=== PATIENT | male | born 1990 | race Caucasian/White ===

== ENCOUNTER 2016-12-05 16:43 | Emergency (ER) | payer MEDICAID ==
[2016-12-05 18:20] VITALS: BP 122/60
--- NOTE | 2016-12-05 19:54 | EDM.PDOC ---
ED HPI Behavioral Health - General Chief Complaint: Behavioral/Psych Stated Complaint: PANIC ATTACK Time Seen by Provider: 12/05/16 18:27 Source: Reports: Patient, Old records, RN notes reviewed Exam Limitations: Reports: No limitations - History of Present Illness INITIAL COMMENTS - FREE TEXT/NARRATIVE: 26-year-old gentleman presents emergency department a complaint of anxiety and stress he is currently going through a difficult social situation he is on a variety of medications including Klonopin, Paxil, Seroquel and Suboxone. He is interested in trying Ativan - Related Data Allergies Allergy/AdvReac Type Severity Reaction Status Date / Time No Known Allergies Allergy Verified 12/05/16 18:14 Home Medications: Home Meds ClonazePAM [KlonoPIN] 0.5 mg PO TID PRN 12/05/16 [History] denies Pain Score (Numeric/FACES): 0 Past Medical History Musculoskeletal History: Reports: Other (see below) Other Musculoskeletal History: Dislocated l shoulderx3 Neurological History: Reports: Seizure, Other (see below) Other Neuro History: related to Ultram Psychiatric History: Reports: Addiction, Anxiety, Depression, Mood swings Other Psychiatric History: Patient unable to answer at this time. Other Dermatologic History: Patient unable to answer at this time. - Infectious Disease History Infectious Disease History: Reports: Chicken pox - Past Surgical History Musculoskeletal Surgical History: Reports: Shoulder surgery Social & Family History - Family History Family Medical History: Unobtainable - Tobacco Use Smoking Status *Q: Never Smoker Years of Tobacco use: 9 Packs/Tins Daily: 0.5 Used Tobacco, but Quit: No Second Hand Smoke Exposure: No - Alcohol Use Days Per Week of Alcohol Use: 0 - Recreational Drug Use Recreational Drug Use: No Drug Use in Last 12 Months: Yes Recreational Drug Type: Reports: Methamphetamine Recreational Drug Use Frequency: Not Used In Over 5 Months ED ROS GENERAL - Review of Systems Review Of Systems: See Below Constitutional: Reports: no symptoms Respiratory: Reports: No Symptoms Cardiovascular: Reports: No symptoms GI/Abdominal: Reports: No symptoms : Reports: no symptoms Psychiatric: Reports: Anxiety ED EXAM, BEHAVIORAL HEALTH - Physical Exam Exam: See Below Exam Limited By: No limitations General Appearance: alert, WD/WN, no apparent distress Respiratory/Chest: no respiratory distress Psychiatric: alert, oriented, restless, agitated, poor eye contact COURSE, BEHAVIORAL HEALTH COMP - Course Vital Signs: Last Vital Signs Temp 98.6 F 12/05/16 18:17 Pulse 120 H 12/05/16 18:17 Resp 16 12/05/16 18:17 BP 122/60 12/05/16 18:17 Pulse Ox 99 12/05/16 18:17 Orders, Labs, Meds: Laboratory Tests 12/05/16 12/05/16 Range/Units 19:06 19:06 Urine Color Yellow Urine Appearance Slightly cloudy Urine pH 5.0 (4.5-8.0) Ur Specific [place] 1.025 (1.008-1.030) Urine Protein 30 H (NEGATIVE) mg/dL Urine Glucose (UA) 250 H (NEGATIVE) mg/dL Urine Ketones 15 H (NEGATIVE) mg/dL Urine Occult Blood Moderate (NEGATIVE) Urine Nitrite Negative (NEGAITVE) Urine Bilirubin Negative (NEGATIVE) Urine Urobilinogen Normal (NORMAL) mg/dL Ur Leukocyte Esterase Negative (NEGATIVE) Urine RBC 0-5 (0-5) Urine WBC 0-5 (0-5) Ur Epithelial Cells Few Amorphous Sediment Few Urine Bacteria Few Urine Mucus Moderate Urine Other Urine Opiates Screen Negative (NEGATIVE) Ur Oxycodone Screen Positive H (NEGATIVE) Urine Methadone Screen Negative (NEGATIVE) Ur Propoxyphene Screen Negative (NEGATIVE) Ur Barbiturates Screen Negative (NEGATIVE) Ur Tricyclics Screen Positive H (NEGATIVE) Ur Phencyclidine Scrn Negative (NEGATIVE) Ur Amphetamine Screen Positive H (NEGATIVE) U Methamphetamines Scrn Positive H (NEGATIVE) Urine MDMA Screen Negative (NEGATIVE) U Benzodiazepines Scrn Positive H (NEGATIVE) U Cocaine Metab Screen Negative (NEGATIVE) U Marijuana (THC) Screen Positive H (NEGATIVE) Departure - Departure Time of Disposition: 19:53 Disposition: Home, Self-Care 01 Condition: fair Clinical Impression: Anxiety Forms: ED Department Discharge Additional Instructions: increase her Paxil from 20 mg a day to 30 mg a day please keep your followup appointment with mental health provider on the of this month - Assessment/Plan Plan: Assessment Acuity = acute on chronic Site and laterality = anxiety complicated with a long history of illegal drug use Etiology = generalized anxiety disorder Manifestations = none Location of injury = home Lab values = urinalysis drug screen positive for opiates, benzodiazepines, methamphetamine, cannabis Plan I did review with him medication options for his anxiety I felt that Ativan is not appropriate for him at this time given his use of Klonopin recommend increase Paxil from 20 mg to 30 mg he does have followup with mental health on the of this month Patient was in agreement with the plan all questions were answered, they were instructed to return to the emergency department or call for worsening symptoms. This note was dictated using [employer] voice recognition software please call with any questions.
== END 2016-12-05 19:58 | disposition home or self-care (01) ==
LOC: JP.ED 16:43
DX: F41.9 Anxiety disorder, unspecified (principal); F32.9 Major depressive disorder, single episode, unspecified
CPT/HCPCS: 80305; 81001; 99283; 99284

== ENCOUNTER 2017-03-26 20:36 | Emergency (ER) | payer MEDICAID ==
[2017-03-26 22:40] VITALS: BP 113/69
--- NOTE | 2017-03-26 23:24 | EDM.PDOC ---
ED HPI GENERAL MEDICAL PROBLEM - General Chief Complaint: Upper Extremity Injury/Pain Stated Complaint: ARM HURTS TOWARDS BACK Time Seen by Provider: 03/26/17 23:06 Source of Information: Reports: Patient, Old Records, RN Notes Reviewed History Limitations: Reports: No Limitations - History of Present Illness INITIAL COMMENTS - FREE TEXT/NARRATIVE: 26-year-old gentleman presents emergency department day complaint of pain control he does have a known history of chronic dislocation with his right shoulder, he has had 2 surgeries on the shoulder for the chronic dislocation usually takes Suboxone for pain control, Right Shoulder Pain Score (Numeric/FACES): 8 - Related Data Allergies Allergy/AdvReac Type Severity Reaction Status Date / Time No Known Allergies Allergy Verified 03/26/17 22:50 Home Meds: Home Meds ClonazePAM [KlonoPIN] 0.5 mg PO TID PRN 12/05/16 [History] Buprenorphine HCl/Naloxone HCl [Zubsolv 8.6-2.1 mg Tablet Sl] 1 tab SL TID PRN 03/26/17 [History] Ibuprofen 800 mg PO TID PRN 03/26/17 [History] QUEtiapine [SEROquel] 25 mg PO QID 03/26/17 [History] Past Medical History Musculoskeletal History: Reports: Other (See Below) Other Musculoskeletal History: bilateral shoulder dislocation Neurological History: Reports: Seizure Other Neuro History: related to Ultram Psychiatric History: Reports: Addiction, Anxiety, Depression, Mood Swings Other Psychiatric History: Patient unable to answer at this time. Other Dermatologic History: Patient unable to answer at this time. - Infectious Disease History Infectious Disease History: Reports: Chicken Pox - Past Surgical History Musculoskeletal Surgical History: Reports: Shoulder Surgery, Other (See Below) Other Musculoskeletal Surgeries/Procedures:: bilateral shoulder surgery Other Oncologic Surgeries/Procedures: Patient unable to answer at this time. Social & Family History - Family History Family Medical History: Unobtainable - Tobacco Use Smoking Status *Q: Current Every Day Smoker Years of Tobacco use: 6 Packs/Tins Daily: 0.7 Used Tobacco, but Quit: No Second Hand Smoke Exposure: No - Caffeine Use Caffeine Use: Reports: Tea - Alcohol Use Days Per Week of Alcohol Use: 0 - Recreational Drug Use Recreational Drug Use: Yes Drug Use in Last 12 Months: Yes Recreational Drug Type: Reports: Marijuana/Hashish Recreational Drug Use Frequency: Not Used In Over 5 Months Review of Systems - Review of Systems Review Of Systems: See Below Constitutional: Reports: No Symptoms Musculoskeletal: Reports: Shoulder Pain ED EXAM, GENERAL - Physical Exam Exam: See Below Free Text/Narrative:: Examination the right shoulder does have limited range however he does have about 250 of abduction full range of motion extension and flexion of the shoulder Exam Limited By: No Limitations General Appearance: Alert, WD/WN, No Apparent Distress Course - Vital Signs Last Recorded V/S: Last Vital Signs Temp 96.7 F 03/26/17 22:55 Pulse 90 03/26/17 22:55 Resp 15 03/26/17 22:55 BP 113/69 03/26/17 22:55 Pulse Ox 100 03/26/17 22:55 Departure - Departure Time of Disposition: 23:23 Disposition: Home, Self-Care 01 Condition: Fair Clinical Impression: Shoulder pain Qualifiers: Chronicity: chronic Laterality: right Qualified Code(s): M25.511 - Pain in right shoulder; G89.29 - Other chronic pain - Discharge Information Forms: ED Department Discharge Additional Instructions: Use Percocet as needed for pain control, please call your orthopedic surgeon in the morning for further evaluation - Assessment/Plan Plan: Assessment Acuity = chronic Site and laterality = left shoulder pain Etiology = secondary to multiple dislocations Manifestations = none Location of injury = Home Lab values = none Plan Prescription granted for 4 Percocet he is to follow-up with his clinic provider tomorrow Patient was in agreement with the plan all questions were answered, they were instructed to return to the emergency department or call for worsening symptoms. This note was dictated using [employer] voice recognition software please call with any questions.
== END 2017-03-26 23:39 | disposition home or self-care (01) ==
LOC: JP.ED 20:36
DX: M25.511 Pain in right shoulder (principal); F17.210 Nicotine dependence, cigarettes, uncomplicated; F41.9 Anxiety disorder, unspecified; F32.9 Major depressive disorder, single episode, unspecified; Z79.899 Other long term (current) drug therapy
CPT/HCPCS: 99283

== ENCOUNTER 2017-04-02 21:21 | Emergency (ER) | payer MEDICAID ==
[2017-04-02 23:33] VITALS: BP 118/76
--- NOTE | 2017-04-03 00:07 | EDM.PDOC ---
ED HPI GENERAL MEDICAL PROBLEM - General Chief Complaint: Upper Extremity Injury/Pain Stated Complaint: ISSUES W/RT SHOULDER Time Seen by Provider: 04/02/17 22:56 Source of Information: Reports: Patient History Limitations: Reports: No Limitations - History of Present Illness INITIAL COMMENTS - FREE TEXT/NARRATIVE: History of present illness: [26-year-old male who says he's having trouble with chronic dislocation of his right shoulder is seeking to have surgery for this. He has a doctor in [place] that he is trying to get in to to have this done. He states this did his left shoulder. He admits to having had trouble with heroin in the past and apparently has some solve that she will use at times for cravings for heroin but does not use it for pain. 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 The most recent incident of his shoulder going out and was when he was sleeping and he rolled over and he stated that his right shoulder popped out and then popped back in and he is presenting with severe pain as a result of this happening.] Review of systems: As per history of present illness and below otherwise all systems reviewed and negative. Past medical history: As per history of present illness and as reviewed below otherwise noncontributory. Surgical history: As per history of present illness and as reviewed below otherwise noncontributory. Family history: As per history of present illness and as reviewed below otherwise noncontributory. Physical exam: HEENT: Atraumatic, normocephalic, Lungs: Clear to auscultation, breath sounds equal bilaterally, chest nontender. Heart: S1S2, regular, negative for clicks, rubs, or JVD. Abdomen: Soft, nondistended, nontender. Negative for masses or hepatosplenomegaly. Negative for costovertebral tenderness. Extremities: Examination of his right shoulder does reveal diffuse tenderness to palpation throughout the shoulder he is very hesitant and reluctant to have me try to put it through any kind of range of motion fearing that it won't go out. Neuro: Awake, alert, oriented. Exam nonfocal. Diagnostics: [] Therapeutics: [] Impression: [Chronic right shoulder dislocations] Plan: [He's provided with 10 Percocet but have urged him to try to establish care with a primary care doctor in [facility]. If his story is true he should be following up with an orthopedic surgeon in [place] to have his right shoulder surgery done.] Definitive disposition and diagnosis as appropriate pending reevaluation and review of above. Right Shoulder Pain Score (Numeric/FACES): 8 - Related Data Allergies Allergy/AdvReac Type Severity Reaction Status Date / Time No Known Allergies Allergy Verified 03/26/17 22:50 Home Meds: Home Meds ClonazePAM [KlonoPIN] 0.5 mg PO TID PRN 12/05/16 [History] Buprenorphine HCl/Naloxone HCl [Zubsolv 8.6-2.1 mg Tablet Sl] 1 tab SL TID PRN 03/26/17 [History] Ibuprofen 800 mg PO TID PRN 03/26/17 [History] QUEtiapine [SEROquel] 25 mg PO QID 03/26/17 [History] Past Medical History Musculoskeletal History: Reports: Other (See Below) Other Musculoskeletal History: bilateral shoulder dislocation Neurological History: Reports: Seizure Other Neuro History: related to Ultr[employer] Psychiatric History: Reports: Addiction, Anxiety, Depression, Mood Swings Other Psychiatric History: Patient unable to answer at this time. Other Dermatologic History: Patient unable to answer at this time. - Infectious Disease History Infectious Disease History: Reports: Chicken Pox - Past Surgical History Other HEENT Surgeries/Procedures: Patient unable to answer at this time. Musculoskeletal Surgical History: Reports: Shoulder Surgery, Other (See Below) Other Musculoskeletal Surgeries/Procedures:: bilateral shoulder surgery Other Oncologic Surgeries/Procedures: Patient unable to answer at this time. Social & Family History - Family History Family Medical History: Unobtainable - Tobacco Use Smoking Status *Q: Current Status Unknown Years of Tobacco use: 6 Packs/Tins Daily: 0.7 Used Tobacco, but Quit: No Second Hand Smoke Exposure: No - Caffeine Use Caffeine Use: Reports: Coffee - Alcohol Use Days Per Week of Alcohol Use: 0 - Recreational Drug Use Recreational Drug Use: No Drug Use in Last 12 Months: Yes Recreational Drug Type: Reports: Marijuana/Hashish Recreational Drug Use Frequency: Not Used In Over 5 Months Review of Systems - Review of Systems Review Of Systems: ROS reveals no pertinent complaints other than HPI. ED EXAM, GENERAL - Physical Exam Exam: See Below Course - Vital Signs Last Recorded V/S: Last Vital Signs Temp 35.9 C 04/02/17 23:41 Pulse 94 04/02/17 23:41 Resp 18 04/02/17 23:41 BP 118/76 04/02/17 23:41 Pulse Ox 100 04/02/17 23:41 Departure - Departure Time of Disposition: 00:06 Disposition: Home, Self-Care 01 Condition: Fair Clinical Impression: Chronic dislocation of right shoulder - Discharge Information Forms: ED Department Discharge Additional Instructions: Please continue to try to get in to see Dr. Anthony Carlisle who will do surgery on her shoulder to take care of this problem. Also I would recommend that you establish care in town with a primary care doctor who can care for your and provide you with medications as needed.
== END 2017-04-03 00:26 | disposition home or self-care (01) ==
LOC: JP.ED 21:21
DX: M24.411 Recurrent dislocation, right shoulder (principal); F41.9 Anxiety disorder, unspecified; F32.9 Major depressive disorder, single episode, unspecified; Z98.890 Other specified postprocedural states; F17.210 Nicotine dependence, cigarettes, uncomplicated
CPT/HCPCS: 99283

== ENCOUNTER 2017-04-14 13:27 | Emergency (ER) | payer MEDICAID ==
[2017-04-14 13:47] VITALS: BP 139/91
[2017-04-14] MEDS ORDERED: Ketorolac 60 MG/2 ML SDV IM ONE (14:58)
--- NOTE | 2017-04-14 15:00 | EDM.PDOC ---
ED HPI GENERAL MEDICAL PROBLEM - General Chief Complaint: Upper Extremity Injury/Pain Stated Complaint: LEFT SHOULDER CHRONIC DISLOCATION Time Seen by Provider: 04/14/17 15:00 Source of Information: Reports: Patient History Limitations: Reports: No Limitations - History of Present Illness INITIAL COMMENTS - FREE TEXT/NARRATIVE: pt arrived with pain in the left shoulder which he feels is recurrently dislocating. He is trying to work at [employer] and has a 2 nd 5 year old child. Onset: Gradual Duration: Week(s): Location: Reports: Upper Extremity, Left Associated Symptoms: Reports: Other ( Pain in the left shoulder. He had surgery in [place] bout 3-4 years . He states about 1 year ago he began to have problems with chronic dislocation. He had surgery on the rt shoulder by Dr Austin and that shoulder id doing well. ) Left Shoulder Pain Score (Numeric/FACES): 8 - Related Data Allergies Allergy/AdvReac Type Severity Reaction Status Date / Time No Known Allergies Allergy Verified 04/14/17 13:50 Home Meds: Home Meds ClonazePAM [KlonoPIN] 0.5 mg PO TID PRN 12/05/16 [History] Buprenorphine HCl/Naloxone HCl [Zubsolv 8.6-2.1 mg Tablet Sl] 1 tab SL TID PRN 03/26/17 [History] Ibuprofen 800 mg PO TID PRN 03/26/17 [History] QUEtiapine [SEROquel] 25 mg PO QID 03/26/17 [History] Past Medical History Musculoskeletal History: Reports: Other (See Below) Other Musculoskeletal History: bilateral shoulder dislocation Neurological History: Reports: Seizure Other Neuro History: related to [employer] Psychiatric History: Reports: Addiction, Anxiety, Depression, Mood Swings Other Psychiatric History: Patient unable to answer at this time. Other Dermatologic History: Patient unable to answer at this time. - Infectious Disease History Infectious Disease History: Reports: Chicken Pox - Past Surgical History Musculoskeletal Surgical History: Reports: Shoulder Surgery, Other (See Below) Other Musculoskeletal Surgeries/Procedures:: bilateral shoulder surgery Social & Family History - Family History Family Medical History: Unobtainable - Tobacco Use Smoking Status *Q: Current Every Day Smoker Years of Tobacco use: 6 Packs/Tins Daily: 0.5 Used Tobacco, but Quit: No Second Hand Smoke Exposure: Yes - Caffeine Use Caffeine Use: Reports: Coffee, Soda, Tea - Alcohol Use Days Per Week of Alcohol Use: 0 - Recreational Drug Use Recreational Drug Use: Yes Drug Use in Last 12 Months: No Recreational Drug Type: Reports: Marijuana/Hashish Recreational Drug Use Frequency: Not Used In Over 5 Months Review of Systems - Review of Systems Review Of Systems: See Below Constitutional: Reports: No Symptoms Eyes: Reports: No Symptoms Ears: Reports: No Symptoms Nose: Reports: No Symptoms Mouth/Throat: Reports: No Symptoms Respiratory: Reports: No Symptoms Cardiovascular: Reports: No Symptoms GI/Abdominal: Reports: No Symptoms Genitourinary: Reports: No Symptoms Musculoskeletal: Reports: Other (pain in the left shoulder. ) ED EXAM, GENERAL - Physical Exam Exam: See Below Free Text/Narrative:: pt has an up coming appt with Dr Austin on the . He has a recurrent dislocation of his left shoulder. Exam Limited By: No Limitations General Appearance: Alert Extremities: Other ( left shoulder is tender, no swelling. He has had previos surgery on the [facility]. ) Course - Vital Signs Last Recorded V/S: Last Vital Signs Temp 36.3 C 04/14/17 14:05 Pulse 99 04/14/17 14:05 Resp 16 04/14/17 14:05 BP 139/91 H 04/14/17 14:05 Pulse Ox 95 04/14/17 14:05 - Orders/Labs/Meds Meds: Medications Discontinued Medications Generic Name Dose Route Start Last Admin Trade Name Freq PRN Reason Stop Dose Admin Ketorolac Tromethamine 60 mg 04/14/17 14:58 Toradol IM 04/14/17 14:59 ONETIME ONE Departure - Departure Time of Disposition: 14:58 Disposition: Home, Self-Care 01 Condition: Fair Clinical Impression: Chronic dislocation of left shoulder - Discharge Information Instructions: Shoulder Dislocation, [id number] Referrals: PCP,None [Primary Care Provider] - Forms: ED Department Discharge Care Plan Goals: rtc for a MRI, stop motrin torodol 10mg q6h for the next 5 days, keep appt with DR phillips.
== END 2017-04-14 15:15 | disposition home or self-care (01) ==
LOC: JP.ED 13:27
DX: M24.412 Recurrent dislocation, left shoulder (principal); F17.210 Nicotine dependence, cigarettes, uncomplicated; F41.9 Anxiety disorder, unspecified; F32.9 Major depressive disorder, single episode, unspecified; Z98.890 Other specified postprocedural states; Z79.899 Other long term (current) drug therapy
CPT/HCPCS: 96372; 99283; J1885

== ENCOUNTER 2017-06-28 18:07 | Emergency (ER) | payer MEDICAID ==
[2017-06-28 18:33] VITALS: BP 116/76
--- NOTE | 2017-06-28 19:32 | EDM.PDOC ---
ED HPI GENERAL MEDICAL PROBLEM - General Chief Complaint: Behavioral/Psych Stated Complaint: SEIZURES; ANXIETY Time Seen by Provider: 06/28/17 18:50 Source of Information: Reports: Patient History Limitations: Reports: Altered Mental Status, Other (Patient falling asleep while speaking to him. ) - History of Present Illness INITIAL COMMENTS - FREE TEXT/NARRATIVE: Antoni presents to the emergency room tonight for complaints of anxiety and depression, he states he cannot live with the anxiety any more. He reports his mental health provider stopped giving him his xanax. He reports he just got custody of his two little girls and has had 10 clean UDS. He denies fever, chills, nausea, vomiting or other complaints. - Related Data Allergies Allergy/AdvReac Type Severity Reaction Status Date / Time No Known Allergies Allergy Verified 04/14/17 13:50 Home Meds: Home Meds ClonazePAM [KlonoPIN] 0.5 mg PO TID PRN 12/05/16 [History] Buprenorphine HCl/Naloxone HCl [Zubsolv 8.6-2.1 mg Tablet Sl] 1 tab SL TID PRN 03/26/17 [History] Ibuprofen 800 mg PO TID PRN 03/26/17 [History] QUEtiapine [SEROquel] 25 mg PO QID 03/26/17 [History] Past Medical History Musculoskeletal History: Reports: Other (See Below) Other Musculoskeletal History: bilateral shoulder dislocation Neurological History: Reports: Seizure 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 Other Dermatologic History: Patient unable to answer at this time. - Infectious Disease History Infectious Disease History: Reports: Chicken Pox - Past Surgical History Musculoskeletal Surgical History: Reports: Shoulder Surgery, Other (See Below) Other Musculoskeletal Surgeries/Procedures:: bilateral shoulder surgery Social & Family History - Family History Family Medical History: Unobtainable - Tobacco Use Smoking Status *Q: Current Every Day Smoker Years of Tobacco use: 6 Packs/Tins Daily: 0.5 Used Tobacco, but Quit: No Second Hand Smoke Exposure: Yes - Caffeine Use Caffeine Use: Reports: Coffee, Soda, Tea - Alcohol Use Days Per Week of Alcohol Use: 0 - Recreational Drug Use Recreational Drug Use: Yes Drug Use in Last 12 Months: No Recreational Drug Type: Reports: Marijuana/Hashish, Methamphetamine Recreational Drug Use Frequency: Not Used In Over 5 Months ED ROS GENERAL - Review of Systems Review Of Systems: See Below Constitutional: Reports: Other (Patient reports having seizures on a daily basis , using suboxone 8 mg as needed. He denies other illicit or mis-use of drugs. ) . Denies: Fever, Chills, Malaise, Weakness HEENT: Reports: No Symptoms Respiratory: Denies: Shortness of Breath, Wheezing, Cough, Sputum Cardiovascular: Denies: Chest Pain, Dyspnea on Exertion, Palpitations, PND, Syncope Endocrine: Reports: No Symptoms GI/Abdominal: Reports: No Symptoms : Reports: No Symptoms Musculoskeletal: Reports: No Symptoms Skin: Reports: No Symptoms Neurological: Reports: No Symptoms Psychiatric: Reports: Anxiety, Depression, Other (He reports he take lamictal. ) . Denies: Hallucinations, Homicidal Ideation, Mood Lability, Suicidal Ideation Hematologic/Lymphatic: Reports: No Symptoms Immunologic: Reports: No Symptoms ED EXAM, GENERAL - Physical Exam Exam: See Below Exam Limited By: Other (Patient falls asleep while speaking with this provider, clothing dirty.) General Appearance: Lethargic Eye Exam: Bilateral Eye: Other (Bilateral pupils 2mm, equal, sluggish) Ears: Normal External Exam, Normal Canal, Hearing Grossly Normal, Normal TMs Ear Exam: Bilateral Ear: Auricle Normal, Canal Normal, TM normal Nose: Normal Inspection, Normal Mucosa, No Blood Throat/Mouth: Normal Inspection, Normal Lips, Normal Voice, No Airway Compromise , Other (Dry mucus membranes) Head: Atraumatic, Normocephalic Neck: Normal Inspection, Supple, Non-Tender, Full Range of Motion. No: Lymphadenopathy (R), Lymphadenopathy (L) Respiratory/Chest: No Respiratory Distress, Lungs Clear, Normal Breath Sounds, No Accessory Muscle Use, Chest Non-Tender Cardiovascular: Normal Peripheral Pulses, Regular Rate, Rhythm, No Edema, No Murmur Peripheral Pulses: 2+: Radial (L), Radial (R) Back Exam: Normal Inspection, Full Range of Motion. No: CVA Tenderness (R), CVA Tenderness (L) Extremities: Normal Range of Motion, Non-Tender, Normal Capillary Refill, Other (Patient refused to take jacket off to examine arms. ) Neurological: Normal Gait, Slow to Respond, Other (Patient refused further assessment. ) Psychiatric: Flat Affect Skin Exam: Warm, Dry, Normal Color Lymphatic: No Adenopathy Course - Vital Signs Last Recorded V/S: Last Vital Signs Temp 36.6 C 06/28/17 18:32 Pulse 124 H 06/28/17 18:32 Resp 18 06/28/17 18:32 BP 116/76 06/28/17 18:32 Pulse Ox 99 06/28/17 18:32 - Re-Assessments/Exams Free Text/Narrative Re-Assessment/Exam: 06/28/17 19:00 Patient informed that a UDS would be ordered, he states he just urinated and will not do one. He was informed that he would not be prescribed a benzodiazepine or other controlled substance. He stated to not do anything for him, just take care of his girls (Nuria Morales, Susan Morales). He reports the mother of the girls has been gone for 2 years. [place] police notified of concerns of his ability to care for his children. 06/28/17 19:25 Patient daughters requested to use toilet, daughters to bathroom with Natalya Price RN. Patient informed of this care-givers concern of his ability to care for his two daughters. Patient walked out of room stating he had custody, visualized present police officers and asked for the way out of the emergency room. He stated "I just want to leave". Patient exited hospital without discharge instructions or further medical care. Police present, observed patient leaving his two daughters in the emergency room. Departure - Departure Time of Disposition: 19:25 Disposition: Eloped 07 Condition: Undetermined Clinical Impression: Altered mental status, unspecified - Discharge Information Referrals: PCP,None [Primary Care Provider] - Forms: ED Department Discharge Additional Instructions: Patient left without children and further medical care or discharge instructions. - Assessment/Plan Assessment:: Undetermined Left without further medical care or discharge instructions. Plan: Police notified.
== END 2017-06-28 19:25 | disposition left against medical advice (07) ==
LOC: JP.ED 18:07
DX: R41.82 Altered mental status, unspecified (principal); F31.9 Bipolar disorder, unspecified; F17.210 Nicotine dependence, cigarettes, uncomplicated; Z98.890 Other specified postprocedural states
CPT/HCPCS: 99284

== ENCOUNTER 2017-11-16 11:48 | Emergency (ER) | payer MEDICAID ==
[2017-11-16] MEDS ORDERED: HYDROmorphone 1 MG/ML Syringe IVPUSH ONE (12:25)
--- NOTE | 2017-11-16 12:26 | EDM.PDOC ---
ED HPI GENERAL MEDICAL PROBLEM - General Chief Complaint: Abdominal Pain Stated Complaint: LT SIDE ABDOMINAL PAIN Time Seen by Provider: 11/16/17 12:23 Source of Information: Reports: Patient History Limitations: Reports: No Limitations - History of Present Illness INITIAL COMMENTS - FREE TEXT/NARRATIVE: pt developed acute pain in the left lower abdoman. He has no burning with urination. He did feel the pain may have started in the left flank. He has not vomited. He did have a normal bm this am. Onset: Other ( started last nite. ) Duration: Hour(s):, Getting Worse Location: Reports: Abdomen Associated Symptoms: Reports: No Other Symptoms Abdomen Pain Score (Numeric/FACES): 9 - Related Data Allergies Allergy/AdvReac Type Severity Reaction Status Date / Time No Known Allergies Allergy Verified 11/16/17 11:56 Home Meds: Home Meds Buprenorphine HCl/Naloxone HCl [Zubsolv 8.6-2.1 mg Tablet Sl] 1 tab SL TID PRN 03/26/17 [History] QUEtiapine [SEROquel] 25 mg PO QID 03/26/17 [History] Past Medical History Musculoskeletal History: Reports: Other (See Below) Other Musculoskeletal History: bilateral shoulder dislocation Neurological History: Reports: Seizure 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 Other Dermatologic History: Patient unable to answer at this time. - Infectious Disease History Infectious Disease History: Reports: Chicken Pox - Past Surgical History Musculoskeletal Surgical History: Reports: Shoulder Surgery, Other (See Below) Other Musculoskeletal Surgeries/Procedures:: bilateral shoulder surgery Other Oncologic Surgeries/Procedures: Patient unable to answer at this time. Social & Family History - Family History Family Medical History: Unobtainable - Tobacco Use Smoking Status *Q: Light Tobacco Smoker Years of Tobacco use: 9 Packs/Tins Daily: 0.5 Used Tobacco, but Quit: No Second Hand Smoke Exposure: Yes - Caffeine Use Caffeine Use: Reports: Coffee, Soda, Tea - Alcohol Use Days Per Week of Alcohol Use: 0 - Recreational Drug Use Recreational Drug Use: Yes Drug Use in Last 12 Months: No Recreational Drug Type: Reports: Heroin, Marijuana/Hashish Recreational Drug Use Frequency: Not Used In Over 5 Months ED ROS GENERAL - Review of Systems Review Of Systems: See Below Constitutional: Reports: No Symptoms HEENT: Reports: No Symptoms Respiratory: Reports: No Symptoms Cardiovascular: Reports: No Symptoms Endocrine: Reports: No Symptoms GI/Abdominal: Reports: Abdominal Pain, Other (pt has pain in the left flank are now in the left lower abdoman. a and it is ) : Reports: Flank Pain Musculoskeletal: Reports: No Symptoms ED EXAM, GI/ABD - Physical Exam Exam: See Below Text/Narrative:: pt arrived with pain in left lower abdoman. He states that the pain started in the left flank area. Exam Limited By: No Limitations General Appearance: Alert, Anxious, Severe Distress Eyes: Bilateral: Normal Appearance, EOMI Ears: Normal TMs Nose: Normal Inspection Throat/Mouth: Normal Inspection Head: Atraumatic Neck: Normal Inspection Respiratory/Chest: No Respiratory Distress Cardiovascular: Regular Rate, Rhythm GI/Abdominal Exam: Soft, Tender, Other (pt has left lower abdomanl tenderness without guarding. ) (Male) Exam: Deferred Rectal (Males) Exam: Deferred Back Exam: Normal Inspection Extremities: Normal Inspection Neurological: Alert, Oriented, Normal Cognition Psychiatric: Anxious Course - Vital Signs Last Recorded V/S: Last Vital Signs Temp 35.6 C 11/16/17 11:55 Pulse 68 11/16/17 13:30 Resp 16 11/16/17 13:30 BP 129/95 H 11/16/17 13:30 Pulse Ox 99 11/16/17 13:30 - Orders/Labs/Meds Orders: Active Orders 24 hr Category Date Time Status Sodium Chloride 0.9% [Normal Saline] 1,000 ml Med 11/16/17 12:30 Active IV ASDIRECTED Sodium Chloride 0.9% [Normal Saline] 1,000 ml Med 11/16/17 13:45 Active IV ASDIRECTED Tamsulosin [Flomax] Med 11/17/17 09:00 Active 0.4 mg PO PCBREAKFAST Medication Orders Sodium Chloride (Normal Saline) 1,000 mls @ 999 mls/hr IV ASDIRECTED SIDDHARTH Last Admin: 11/16/17 12:44 Dose: 999 mls/hr Sodium Chloride (Normal Saline) 1,000 mls @ 999 mls/hr IV ASDIRECTED SIDDHARTH Last Admin: 11/16/17 13:44 Dose: 999 mls/hr Tamsulosin HCl (Flomax) 0.4 mg PO PCBREAKFAST [facility] Last Admin: 11/16/17 14:01 Dose: 0.4 mg Labs: Laboratory Tests 11/16/17 11/16/17 11/16/17 Range/Units 12:15 12:15 12:15 WBC 12.4 H (4.5-11.0) K/uL RBC 4.66 (4.30-5.90) M/uL Hgb 13.4 (12.0-15.0) g/dL Hct 40.6 (40.0-54.0) % MCV 87 (80-98) fL MCH 29 (27-31) pg MCHC 33 (32-36) % Plt Count 369 (150-400) K/uL Neut % (Auto) 80 H (36-66) % Lymph % (Auto) 15 L (24-44) % [place] % (Auto) 5 (2-6) % Eos % (Auto) 0 L (2-4) % Baso % (Auto) 0 (0-1) % Sodium 138 L (140-148) mmol/L Potassium 3.7 (3.6-5.2) mmol/L Chloride 102 (100-108) mmol/L Carbon Dioxide 30 (21-32) mmol/L Anion Gap 9.7 (5.0-14.0) mmol/L BUN 12 (7-18) mg/dL Creatinine 1.0 (0.8-1.3) mg/dL Est Cr Clr Drug Dosing 130.94 mL/min Estimated GFR (MDRD) > 60 (>60) Glucose 106 (74-106) mg/dL Calcium 8.9 (8.5-10.1) mg/dL Total Bilirubin 0.2 (0.2-1.0) mg/dL AST 21 (15-37) U/L ALT 20 (12-78) U/L Alkaline Phosphatase 107 (46-116) U/L C-Reactive Protein 0.08 (0.0-0.3) mg/dL Total Protein 7.5 (6.4-8.2) g/dL Albumin 3.9 (3.4-5.0) g/dL Globulin 3.6 H (2.3-3.5) g/dL Albumin/Globulin Ratio 1.1 L (1.2-2.2) Urine Color Urine Appearance Urine pH (4.5-8.0) Ur Specific [place] (1.008-1.030) Urine Protein (NEGATIVE) mg/dL Urine Glucose (UA) (NEGATIVE) mg/dL Urine Ketones (NEGATIVE) mg/dL Urine Occult Blood (NEGATIVE) Urine Nitrite (NEGAITVE) Urine Bilirubin (NEGATIVE) Urine Urobilinogen (NORMAL) mg/dL Ur Leukocyte Esterase (NEGATIVE) Urine RBC (0-5) Urine WBC (0-5) Ur Epithelial Cells Amorphous Sediment Urine Bacteria Urine Mucus Urine Other Urine Opiates Screen (NEGATIVE) Ur Oxycodone Screen (NEGATIVE) Urine Methadone Screen (NEGATIVE) Ur Propoxyphene Screen (NEGATIVE) Ur Barbiturates Screen (NEGATIVE) Ur Tricyclics Screen (NEGATIVE) Ur Phencyclidine Scrn (NEGATIVE) Ur Amphetamine Screen (NEGATIVE) U Methamphetamines Scrn (NEGATIVE) Urine MDMA Screen (NEGATIVE) U Benzodiazepines Scrn (NEGATIVE) U Cocaine Metab Screen (NEGATIVE) U Marijuana (THC) Screen (NEGATIVE) 11/16/17 11/16/17 Range/Units 13:02 13:02 WBC (4.5-11.0) K/uL RBC (4.30-5.90) M/uL Hgb (12.0-15.0) g/dL Hct (40.0-54.0) % MCV (80-98) fL MCH (27-31) pg MCHC (32-36) % Plt Count (150-400) K/uL Neut % (Auto) (36-66) % Lymph % (Auto) (24-44) % [place] % (Auto) (2-6) % Eos % (Auto) (2-4) % Baso % (Auto) (0-1) % Sodium (140-148) mmol/L Potassium (3.6-5.2) mmol/L Chloride (100-108) mmol/L Carbon Dioxide (21-32) mmol/L Anion Gap (5.0-14.0) mmol/L BUN (7-18) mg/dL Creatinine (0.8-1.3) mg/dL Est Cr Clr Drug Dosing mL/min Estimated GFR (MDRD) (>60) Glucose (74-106) mg/dL Calcium (8.5-10.1) mg/dL Total Bilirubin (0.2-1.0) mg/dL AST (15-37) U/L ALT (12-78) U/L Alkaline Phosphatase (46-116) U/L C-Reactive Protein (0.0-0.3) mg/dL Total Protein (6.4-8.2) g/dL Albumin (3.4-5.0) g/dL Globulin (2.3-3.5) g/dL Albumin/Globulin Ratio (1.2-2.2) Urine Color Yellow Urine Appearance Cloudy Urine pH 7.0 (4.5-8.0) Ur Specific [place] 1.015 (1.008-1.030) Urine Protein Negative (NEGATIVE) mg/dL Urine Glucose (UA) Normal (NEGATIVE) mg/dL Urine Ketones Negative (NEGATIVE) mg/dL Urine Occult Blood Large (NEGATIVE) Urine Nitrite Negative (NEGAITVE) Urine Bilirubin Negative (NEGATIVE) Urine Urobilinogen Normal (NORMAL) mg/dL Ur Leukocyte Esterase Negative (NEGATIVE) Urine RBC 20-30 H (0-5) Urine WBC 0-5 (0-5) Ur Epithelial Cells Rare Amorphous Sediment Many Urine Bacteria Rare Urine Mucus Not seen Urine Other Urine Opiates Screen Positive H (NEGATIVE) Ur Oxycodone Screen Negative (NEGATIVE) Urine Methadone Screen Negative (NEGATIVE) Ur Propoxyphene Screen Negative (NEGATIVE) Ur Barbiturates Screen Negative (NEGATIVE) Ur Tricyclics Screen Negative (NEGATIVE) Ur Phencyclidine Scrn Negative (NEGATIVE) Ur Amphetamine Screen Positive H (NEGATIVE) U Methamphetamines Scrn Positive H (NEGATIVE) Urine MDMA Screen Positive H (NEGATIVE) U Benzodiazepines Scrn Negative (NEGATIVE) U Cocaine Metab Screen Negative (NEGATIVE) U Marijuana (THC) Screen Positive H (NEGATIVE) Meds: Medications Generic Name Dose Route Start Last Admin Trade Name Freq PRN Reason Stop Dose Admin Sodium Chloride 1,000 mls @ 999 mls/hr 11/16/17 12:30 11/16/17 12:44 Normal Saline IV 999 mls/hr ASDIRECTED SIDDHARTH Administration Sodium Chloride 1,000 mls @ 999 mls/hr 11/16/17 13:45 11/16/17 13:44 Normal Saline IV 999 mls/hr ASDIRECTED SIDDHARTH Administration Tamsulosin HCl 0.4 mg 11/17/17 09:00 11/16/17 14:01 Flomax PO 0.4 mg PCBREAKFAST SIDDHARTH Administration Discontinued Medications Generic Name Dose Route Start Last Admin Trade Name Luisito PRN Reason Stop Dose Admin Hydromorphone HCl 1 mg 11/16/17 12:25 11/16/17 12:43 Dilaudid IVPUSH 11/16/17 12:26 1 mg ONETIME ONE Administration Ketorolac Tromethamine 30 mg 11/16/17 13:46 11/16/17 14:02 Toradol IVPUSH 11/16/17 13:47 30 mg ONETIME ONE Administration Tamsulosin HCl Confirm 11/16/17 14:00 11/16/17 14:03 Flomax Administered 11/16/17 14:01 Not Given Dose 0.4 mg [address]TE [facility] ONE - Re-Assessments/Exams Free Text/Narrative Re-Assessment/Exam: 11/16/17 14:20 pt has a 3 mm stone just outside the bladder on the left. He was given torodol and flomax. Departure - Departure Time of Disposition: 15:01 Disposition: Home, Self-Care 01 Condition: Fair Clinical Impression: Left ureteral stone, Drug abuse - Discharge Information Referrals: PCP,None [Primary Care Provider] - Forms: ED Department Discharge Care Plan Goals: push fluids, flomax .4 po daily, strain all urine, torodol 10mg q6h prn for pain , - My Orders Last 24 Hours: My Active Orders 11/16/17 12:30 Sodium Chloride 0.9% [Normal Saline] 1,000 ml IV ASDIRECTED 11/17/17 09:00 Tamsulosin [Flomax] 0.4 mg PO PCBREAKFAST - Assessment/Plan Last 24 Hours: My Active Orders 11/16/17 12:30 Sodium Chloride 0.9% [Normal Saline] 1,000 ml IV ASDIRECTED 11/17/17 09:00 Tamsulosin [Flomax] 0.4 mg PO PCBREAKFAST
[2017-11-16] MEDS ORDERED: Sodium Chloride 0.9% 1,000 ML IV SCH ×2 (12:30→13:45)
[2017-11-16 13:43] VITALS: BP 129/95
[2017-11-16] MEDS ORDERED: Ketorolac 30 MG/ML SDV IVPUSH ONE (13:46)
[2017-11-16] MEDS ORDERED: Tamsulosin 0.4 MG Cap.ER ONE (14:00)
--- NOTE | 2017-11-16 14:04 | CT ---
Abdomen Pelvis wo Cont INDICATION: left lower abdominal pain TECHNIQUE: CT images of the abdomen and pelvis obtained without oral or IV contrast. DLP: 806 mGycm COMPARISON: None. FINDINGS: Study is Limited without oral or IV contrast. 4 mm Stone at the left UVJ causing moderate left hydronephrosis and hydroureter. No intrarenal calcu li. No hydronephrosis on the right. Right ureters clear. Diffuse bladder wall thickening. Remainder o f the study unremarkable. Normal appendix. No ascites or inflammatory change. IMPRESSION:4 mm stone left UVJ causing moderate left hydronephrosis and hydroureter.
[2017-11-17] MEDS ORDERED: Tamsulosin 0.4 MG Cap.ER PO SCH (09:00)
== END 2017-11-16 15:45 | disposition home or self-care (01) ==
LOC: JP.ED 11:48
DX: N13.2 Hydronephrosis with renal and ureteral calculous obstruction (principal); F19.10 Other psychoactive substance abuse, uncomplicated; F31.9 Bipolar disorder, unspecified; Z79.899 Other long term (current) drug therapy; Z72.0 Tobacco use
CPT/HCPCS: 36415; 51798; 74176; 80053; 80305; 81001; 85025; 86140; 96361; 96374; 96375; 99284; A9270; J1170; J1885; J7040

== ENCOUNTER 2017-12-09 18:03 | Emergency (ER) | payer MEDICAID ==
[2017-12-09] MEDS ORDERED: LORazepam 1 MG Tab PO ONE (18:31)
[2017-12-09 18:48] VITALS: BP 134/79
--- NOTE | 2017-12-09 18:53 | EDM.PDOC ---
ED HPI GENERAL MEDICAL PROBLEM - General Chief Complaint: Upper Extremity Injury/Pain Stated Complaint: L SHOULDER DISLOCATION Time Seen by Provider: 12/09/17 18:15 Source of Information: Reports: Patient History Limitations: Reports: No Limitations - History of Present Illness INITIAL COMMENTS - FREE TEXT/NARRATIVE: 27-year-old male with chronic left shoulder dislocations, seizure disorder since age 8, and chronic drug abuse presents with a left-sided shoulder dislocation for the past hour. He was "messing with his hair" when the shoulder popped out. He was in significant discomfort. No other complaints initially. Onset: Sudden Duration: Hour(s): (Within the last hour) Location: Reports: Upper Extremity, Left Severity: Moderate Improves with: Reports: None Worsens with: Reports: Movement Left Shoulder Pain Score (Numeric/FACES): 10 - Related Data Allergies Allergy/AdvReac Type Severity Reaction Status Date / Time No Known Allergies Allergy Verified 12/09/17 18:23 Home Meds: Home Meds clonazePAM [Klonopin] 1 mg PO BID 12/09/17 [History] Past Medical History Musculoskeletal History: Reports: Other (See Below) Other Musculoskeletal History: bilateral shoulder dislocation Neurological History: Reports: Seizure 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 Other Dermatologic History: Patient unable to answer at this time. - Infectious Disease History Infectious Disease History: Reports: Chicken Pox - Past Surgical History Musculoskeletal Surgical History: Reports: Shoulder Surgery, Other (See Below) Other Musculoskeletal Surgeries/Procedures:: bilateral shoulder surgery Social & Family History - Family History Family Medical History: Unobtainable - Tobacco Use Smoking Status *Q: Unknown Ever Smoked Years of Tobacco use: 9 Packs/Tins Daily: 0.5 Used Tobacco, but Quit: No Second Hand Smoke Exposure: Yes - Caffeine Use Caffeine Use: Reports: Coffee, Soda, Tea - Alcohol Use Days Per Week of Alcohol Use: 0 - Recreational Drug Use Recreational Drug Use: Yes Drug Use in Last 12 Months: No Recreational Drug Type: Reports: Heroin, Marijuana/Hashish Recreational Drug Use Frequency: Not Used In Over 5 Months Review of Systems - Review of Systems Review Of Systems: See Below Respiratory: Denies: Shortness of Breath Cardiovascular: Denies: Chest Pain GI/Abdominal: Denies: Abdominal Pain Skin: Reports: No Symptoms ED EXAM, GENERAL - Physical Exam Exam: See Below Exam Limited By: No Limitations General Appearance: Alert, Moderate Distress Head: Atraumatic Respiratory/Chest: No Respiratory Distress Cardiovascular: Tachycardia Extremities: Other (Obvious subclavicular defect from an anterior dislocation on the left side) Course - Vital Signs Last Recorded V/S: Last Vital Signs Temp 99.1 F 12/09/17 18:14 Pulse 138 H 12/09/17 18:48 Resp 15 12/09/17 18:48 BP 134/79 12/09/17 18:48 Pulse Ox 99 12/09/17 18:48 - Orders/Labs/Meds Orders: Active Orders 24 hr Category Date Time Status Shoulder 1V Lt [CR] Stat Exams 12/09/17 18:12 Taken Labs: Laboratory Tests 12/09/17 12/09/17 Range/Units 18:12 18:12 WBC 13.3 H (4.5-11.0) K/uL RBC 4.99 (4.30-5.90) M/uL Hgb 14.6 (12.0-15.0) g/dL Hct 42.4 (40.0-54.0) % MCV 85 (80-98) fL MCH 29 (27-31) pg MCHC 34 (32-36) % Plt Count 405 H (150-400) K/uL Neut % (Auto) 68 H (36-66) % Lymph % (Auto) 25 (24-44) % [place] % (Auto) 7 H (2-6) % Eos % (Auto) 1 L (2-4) % Baso % (Auto) 0 (0-1) % Sodium 140 (140-148) mmol/L Potassium 4.1 (3.6-5.2) mmol/L Chloride 100 (100-108) mmol/L Carbon Dioxide 21 (21-32) mmol/L Anion Gap 19.5 H (5.0-14.0) mmol/L BUN 24 H D (7-18) mg/dL Creatinine 1.3 (0.8-1.3) mg/dL Est Cr Clr Drug Dosing 96.68 mL/min Estimated GFR (MDRD) > 60 (>60) Glucose 119 H (74-106) mg/dL Calcium 9.5 (8.5-10.1) mg/dL Total Bilirubin 0.3 (0.2-1.0) mg/dL AST 23 (15-37) U/L ALT 22 (12-78) U/L Alkaline Phosphatase 125 H (46-116) U/L Total Protein 8.6 H (6.4-8.2) g/dL Albumin 4.6 (3.4-5.0) g/dL Globulin 4.0 H (2.3-3.5) g/dL Albumin/Globulin Ratio 1.2 (1.2-2.2) Meds: Medications Discontinued Medications Generic Name Dose Route Start Last Admin Trade Name Luisito PRN Reason Stop Dose Admin Lorazepam 1 mg 12/09/17 18:31 12/09/17 18:43 Ativan PO 12/09/17 18:32 1 mg ONETIME ONE Administration - Re-Assessments/Exams Free Text/Narrative Re-Assessment/Exam: 12/09/17 18:50 While taking the patient's history he had a 30 second generalized seizure. While he was postictal the shoulder was reduced without difficulty. A spot glucometer was obtained. The patient airway was maintained during his postictal phase which was recovered quickly. He denies methamphetamine use but he has fresh appearing track alatorre on both arms. The left arm was placed in a sling and he was given 1 mg of oral Ativan. CBC and CMP were obtained. He was observed for the next hour and remained stable. A [employer] search shows he received a recent fairly large prescription for Suboxone but he denies taking any Suboxone for the past year. 12/09/17 19:53 Unfortunately prior to discharge, the patient took his arm out of the sling and tried to put a sweater on and redislocated the left shoulder. We were able to again reduce the shoulder with countertraction, no anesthesia was necessary. I then contacted [facility] orthopedics in [place], and they are going to call the patient to set up a an appointment with Dr. Pace, specialist for shoulder repair. Departure - Departure Time of Disposition: 19:50 Disposition: Home, Self-Care 01 Condition: Good Clinical Impression: Shoulder dislocation, recurrent Qualifiers: Laterality: left Qualified Code(s): M24.412 - Recurrent dislocation, left shoulder - Discharge Information Instructions: Shoulder Dislocation, [id number] Referrals: PCP,None [Primary Care Provider] - Forms: ED Department Discharge Care Plan Goals: Keep him immobilized with sling and swath until rechecked by orthopedics. They will call you regarding an appointment time. - My Orders Last 24 Hours: My Active Orders 12/09/17 18:12 Shoulder 1V Lt [CR] Stat - Assessment/Plan Last 24 Hours: My Active Orders 12/09/17 18:12 Shoulder 1V Lt [CR] Stat
--- NOTE | 2017-12-10 09:31 | CR ---
Portable left shoulder A single view is obtained in the frontal projection. The humeral head overlies the glenoid on this si ngle view. Additional images would be required to confirm anatomic alignment. There is no evidence of fracture.
== END 2017-12-09 19:47 | disposition home or self-care (01) ==
LOC: JP.ED 18:03
DX: M24.412 Recurrent dislocation, left shoulder (principal)
CPT/HCPCS: 23650; 36415; 73020; 80053; 82962; 85025; 99284; A9270

== ENCOUNTER 2017-12-13 04:21 | Emergency (ER) | payer MEDICAID ==
[2017-12-13 04:35] VITALS: BP 133/91
[2017-12-13] MEDS ORDERED: Diazepam 5 MG/ML ML Oral Soln 30 ML Bottle PO ONE (04:52)
[2017-12-13] MEDS ORDERED: Ketorolac 60 MG/2 ML SDV IM ONE (04:53)
[2017-12-13] MEDS ORDERED: Diazepam 5 MG Tab PO ONE (04:55)
--- NOTE | 2017-12-13 04:59 | EDM.PDOC ---
ED HPI GENERAL MEDICAL PROBLEM - General Chief Complaint: Upper Extremity Injury/Pain Stated Complaint: DISLOCATED L SHOULDER Time Seen by Provider: 12/13/17 04:45 Source of Information: Reports: Patient, Old Records, RN History Limitations: Reports: No Limitations - History of Present Illness INITIAL COMMENTS - FREE TEXT/NARRATIVE: 27 yo male here with an anteriorly dislocated L shoulder. He has a pHx of recurrent dislocations, the last time was just 4 days ago. He states that he rolled over in bed tonight to cause this. Has had surgery to both shoulders for this recurrent dislocations. The L shoulder is his worst shoulder. He has no numbness of his L hand at this time. Unable to reduce on his own. Is awaiting a call from [facility] for an appt after referral was made the last time he was here for this. Onset: Today Onset Date: 12/13/17 Onset Time: 04:10 Duration: Minutes:, Constant Location: Reports: Upper Extremity, Left Quality: Reports: Ache Severity: Moderate Improves with: Reports: None Worsens with: Reports: Movement Context: Reports: Other (Hx of recurrent dislocations.) Associated Symptoms: Reports: No Other Symptoms Treatments [employer]: Reports: Other (see below) (none) Left Shoulder Pain Score (Numeric/FACES): 10 - Related Data Allergies Allergy/AdvReac Type Severity Reaction Status Date / Time cyclobenzaprine Allergy Seizure Verified 12/13/17 04:53 tramadol Allergy Seizure Verified 12/13/17 04:53 Home Meds: Home Meds ALPRAZolam [Alprazolam] 1 mg PO TID 12/13/17 [History] Past Medical History Musculoskeletal History: Reports: Other (See Below) Other Musculoskeletal History: bilateral shoulder dislocation Neurological History: Reports: Seizure 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 Other Dermatologic History: Patient unable to answer at this time. - Infectious Disease History Infectious Disease History: Reports: Chicken Pox - Past Surgical History Other HEENT Surgeries/Procedures: Patient unable to answer at this time. Musculoskeletal Surgical History: Reports: Shoulder Surgery, Other (See Below) Other Musculoskeletal Surgeries/Procedures:: bilateral shoulder surgery Other Oncologic Surgeries/Procedures: Patient unable to answer at this time. Social & Family History - Family History Family Medical History: Unobtainable - Tobacco Use Smoking Status *Q: Current Some Day Smoker Years of Tobacco use: 10 Packs/Tins Daily: 0.5 Used Tobacco, but Quit: No Second Hand Smoke Exposure: Yes - Caffeine Use Caffeine Use: Reports: Coffee, Soda - Alcohol Use Days Per Week of Alcohol Use: 0 - Recreational Drug Use Recreational Drug Use: Yes Drug Use in Last 12 Months: No Recreational Drug Type: Reports: Marijuana/Hashish Recreational Drug Use Frequency: Weekly Review of Systems - Review of Systems Review Of Systems: See Below Constitutional: Reports: No Symptoms Musculoskeletal: Reports: Shoulder Pain (left) Skin: Reports: No Symptoms Neurological: Reports: No Symptoms ED EXAM, GENERAL - Physical Exam Exam: See Below Exam Limited By: No Limitations General Appearance: Alert, WD/WN, Mild Distress Extremities: Other (Thin man with easily palpated L anterior shoulder dislocation. Visible deformity.) Neurological: Alert, Oriented, CN II-XII Intact, Normal Cognition, Sensory/ Motor Deficit (unable to move at the L shoulder due to the pain of the dislocation. ) Psychiatric: Normal Affect, Normal Mood Skin Exam: Warm, Dry, Intact, Normal Color, No Rash Course - Vital Signs Text/Narrative:: Tried reducing with oral Diazepam 20 mg and Toradol 60 mg IM, unsuccessful, likely due to his resistance to benzo's from taking Xanax 1 mg tid for a year for his anxiety. Will call in anesthesia for ? Propofol sedation to facilitate reduction. Unfortunately, patient had eaten a couple hrs ago so will need to give him some time before he can be sedated and the shoulder reduced. Last Recorded V/S: Last Vital Signs Temp 36.5 C 12/13/17 04:31 Pulse 115 H 12/13/17 04:31 Resp 18 12/13/17 04:31 BP 133/91 H 12/13/17 04:31 Pulse Ox 98 12/13/17 04:31 - Orders/Labs/Meds Meds: Medications Discontinued Medications Generic Name Dose Route Start Last Admin Trade Name Rustamq PRN Reason Stop Dose Admin Diazepam 20 mg 12/13/17 04:52 Valium Intensol 5 Mg/Ml PO 12/13/17 04:53 ONETIME ONE Diazepam 20 mg 12/13/17 04:55 12/13/17 05:01 Valium. PO 12/13/17 04:56 20 mg ONETIME ONE Administration Hydromorphone HCl 1 mg 12/13/17 06:24 12/13/17 06:28 Dilaudid IVPUSH 12/13/17 06:25 1 mg ONETIME ONE Administration Sodium Chloride 1,000 mls @ 150 mls/hr 12/13/17 05:45 12/13/17 05:42 Normal Saline IV 150 mls/hr ASDIRECTED SIDDHARTH Administration Ketorolac Tromethamine 60 mg 12/13/17 04:53 12/13/17 05:05 Toradol IM 12/13/17 04:54 60 mg ONETIME ONE Administration Departure - Departure Time of Disposition: 07:30 Disposition: Eloped 07 Condition: Good Clinical Impression: Shoulder dislocation, recurrent Qualifiers: Laterality: left Qualified Code(s): M24.412 - Recurrent dislocation, left shoulder - Discharge Information Referrals: PCP,None [Primary Care Provider] - Forms: ED Department Discharge
[2017-12-13] MEDS ORDERED: Sodium Chloride 0.9% 1,000 ML IV SCH (05:45)
[2017-12-13] MEDS ORDERED: HYDROmorphone 1 MG/ML Syringe IVPUSH ONE (06:24)
== END 2017-12-13 07:10 | disposition left against medical advice (07) ==
LOC: JP.ED 04:21
DX: M24.412 Recurrent dislocation, left shoulder (principal); F17.210 Nicotine dependence, cigarettes, uncomplicated; F31.9 Bipolar disorder, unspecified; Z88.8 Allergy status to other drugs, medicaments and biological substances
CPT/HCPCS: 96372; 96374; 99283; A9270; J1170; J1885; J7040

== ENCOUNTER 2018-02-25 18:01 | Emergency (ER) | payer MEDICAID ==
[2018-02-25 18:28] VITALS: BP 110/87
--- NOTE | 2018-02-25 18:41 | EDM.PDOC ---
ED HPI GENERAL MEDICAL PROBLEM - General Chief Complaint: Skin Complaint Stated Complaint: RASH ON LEFT ARM AND SHOULDER, SPREADING Time Seen by Provider: 02/25/18 18:10 Source of Information: Reports: Patient History Limitations: Reports: No Limitations - History of Present Illness INITIAL COMMENTS - FREE TEXT/NARRATIVE: 27-year-old male has a slowly erupting papular rash over his upper body over the past 2 months. He developed some new small papules on the right arm today and decided he would come in and have it checked. It's mildly pruritic, no other symptoms. No lower body rash, he has not been in a hot tub or swimming in the [place]. It started on his posterior left shoulder and he thought it was "acne ". He has no primary physician. Onset: Gradual Duration: Other (Symptoms have been ongoing for months) - Related Data Allergies Allergy/AdvReac Type Severity Reaction Status Date / Time cyclobenzaprine Allergy Seizure Verified 02/25/18 18:28 tramadol Allergy Seizure Verified 02/25/18 18:28 Home Meds: Home Meds ALPRAZolam [Alprazolam] 1 mg PO TID 12/13/17 [History] Past Medical History Musculoskeletal History: Reports: Other (See Below) Other Musculoskeletal History: bilateral shoulder dislocation Neurological History: Reports: Seizure 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 Other Dermatologic History: Patient unable to answer at this time. - Infectious Disease History Infectious Disease History: Reports: Chicken Pox - Past Surgical History Musculoskeletal Surgical History: Reports: Shoulder Surgery, Other (See Below) Other Musculoskeletal Surgeries/Procedures:: bilateral shoulder surgery Social & Family History - Family History Family Medical History: Unobtainable - Tobacco Use Smoking Status *Q: Unknown Ever Smoked - Caffeine Use Caffeine Use: Reports: Coffee, Soda ED ROS GENERAL - Review of Systems Review Of Systems: See Below Constitutional: Denies: Fever Respiratory: Denies: Shortness of Breath Cardiovascular: Denies: Chest Pain GI/Abdominal: Denies: Nausea, Vomiting Musculoskeletal: Reports: Other (Has chronic recurring dislocated shoulders) Neurological: Reports: No Symptoms Psychiatric: Reports: Other (History of methamphetamine abuse) ED EXAM, SKIN/RASH Exam: See Below Exam Limited By: No Limitations General Appearance: Alert, No Apparent Distress Respiratory/Chest: No Respiratory Distress Cardiovascular: Regular Rate, Rhythm Neurological: Alert, Oriented Psychiatric: Normal Affect, Normal Mood Skin: Warm, Dry, Other (Patient has widespread small 2-3 mm papules many of them appear to have a small amount of pustular component. They're located on his back, chest, and arms.) Course - Vital Signs Last Recorded V/S: Last Vital Signs Temp 96.4 F 02/25/18 18:25 Pulse 98 02/25/18 18:25 Resp 14 02/25/18 18:25 BP 110/87 02/25/18 18:25 Pulse Ox 98 02/25/18 18:25 - Re-Assessments/Exams Free Text/Narrative Re-Assessment/Exam: 02/25/18 18:40 This patient has folliculitis, I'm not sure what the cause is. All the lesions are very small. We'll try a course of Bactrim twice a day for at least 5 days, and he should recheck at the clinic if not improving as he may need further studies or possibly a course of steroids. Departure - Departure Time of Disposition: 18:48 Disposition: Home, Self-Care 01 Condition: Good Clinical Impression: Folliculitis - Discharge Information Instructions: Folliculitis Referrals: PCP,None [Primary Care Provider] - Forms: ED Department Discharge Care Plan Goals: Keep skin clean, dry antibiotic twice daily for at least 5 days. Recheck at the clinic if not improving after 5 days or return sooner if worsening.
== END 2018-02-25 18:48 | disposition home or self-care (01) ==
LOC: JP.ED 18:01
DX: L73.9 Follicular disorder, unspecified (principal); Z88.6 Allergy status to analgesic agent; Z88.8 Allergy status to other drugs, medicaments and biological substances
CPT/HCPCS: 99283

== ENCOUNTER 2018-05-09 22:07 | Emergency (ER) | payer MEDICAID ==
[2018-05-09] MEDS ORDERED: HYDROmorphone 0.5 MG/0.5 ML Syringe IVPUSH ONE (22:22)
[2018-05-09 22:23] VITALS: BP 122/86
[2018-05-09] MEDS ORDERED: Sodium Chloride 0.9% 1,000 ML IV SCH (22:30)
[2018-05-09] MEDS ORDERED: Levofloxacin/Dextrose 5%-Water 500 MG in Premix Bag 1 BAG IV ONE (23:35)
[2018-05-09] MEDS ORDERED: Phenazopyridine 95 MG Tab PO ONE (23:36)
[2018-05-09] MEDS ORDERED: Ketorolac 30 MG/ML SDV IVPUSH ONE (23:36)
[2018-05-09] MEDS ORDERED: Phenazopyridine 95 MG Tab ONE (23:57)
[2018-05-10] MEDS ORDERED: Magnesium Citrate Solution 296 ML Bottle PO ONE (00:01)
--- NOTE | 2018-05-10 00:07 | EDM.PDOC ---
ED HPI GENERAL MEDICAL PROBLEM - General Chief Complaint: Genitourinary Problem Stated Complaint: URINATING BLOOD Time Seen by Provider: 05/09/18 22:25 Source of Information: Reports: Patient History Limitations: Reports: No Limitations - History of Present Illness INITIAL COMMENTS - FREE TEXT/NARRATIVE: pt arrived with acute pain when he voids. He is having problems voiding because it hurts so bad. He has not had a bm for 1 week. He is not vomiting. He did note some blood in his urine. He has had a kidney stone in the past. Onset: Gradual, Other ( last 36 hours. ) Duration: Hour(s): Location: Reports: Abdomen, Other ( rm alot when he voids. ) Bladder Pain Score (Numeric/FACES): 10 - Related Data Allergies Allergy/AdvReac Type Severity Reaction Status Date / Time cyclobenzaprine Allergy Seizure Verified 05/09/18 22:16 tramadol Allergy Seizure Verified 05/09/18 22:16 Home Meds: Home Meds ALPRAZolam [Alprazolam] 1 mg PO TID 12/13/17 [History] Buprenorphine HCl/Naloxone HCl [Suboxone 12 mg-3 mg Sl Film] 2 - 8 film PO DAILY 05/09/18 [History] Past Medical History Genitourinary History: Reports: Renal Calculus Musculoskeletal History: Reports: Other (See Below) Other Musculoskeletal History: l shoulder dislocation Neurological History: Reports: Seizure 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 Other Dermatologic History: Patient unable to answer at this time. - Infectious Disease History Infectious Disease History: Reports: Chicken Pox - Past Surgical History Musculoskeletal Surgical History: Reports: Shoulder Surgery, Other (See Below) Other Musculoskeletal Surgeries/Procedures:: bilateral shoulder surgery Social & Family History - Family History Family Medical History: Unobtainable - Tobacco Use Smoking Status *Q: Current Every Day Smoker Years of Tobacco use: 8 Packs/Tins Daily: 0.5 Used Tobacco, but Quit: No - Caffeine Use Caffeine Use: Reports: Coffee, Soda - Recreational Drug Use Recreational Drug Use: Yes Recreational Drug Type: Reports: Marijuana/Hashish, Methamphetamine Recreational Drug Use Frequency: Monthly ED ROS GENERAL - Review of Systems Review Of Systems: See Below Constitutional: Reports: Chills, Malaise HEENT: Reports: No Symptoms Respiratory: Reports: No Symptoms Cardiovascular: Reports: No Symptoms Endocrine: Reports: No Symptoms GI/Abdominal: Reports: Abdominal Pain, Constipation, Other ( rm when he passes his urine. ) : Reports: Dysuria, Frequency, Hematuria Musculoskeletal: Reports: No Symptoms Skin: Reports: No Symptoms Neurological: Reports: No Symptoms ED EXAM, RENAL/ - Physical Exam Exam: See Below Text/Narrative:: pt arrived with pain with voiding and flank pain. He has not had a bm for 1 week, Exam Limited By: No Limitations General Appearance: Alert, Anxious, Moderate Distress Ears: Normal TMs Nose: Normal Inspection Throat/Mouth: Normal Inspection Head: Atraumatic Neck: Normal Inspection Respiratory/Chest: No Respiratory Distress Cardiovascular: Regular Rate, Rhythm GI/Abdominal: Other ( tender in the lower abdoman. ) Rectal (Males) Exam: Normal Exam, Other (pt does not have alort of hard stool in the rectum. ) Extremities: Normal Inspection Neurological: Alert, Oriented, Normal Cognition Psychiatric: Depressed Mood, Other ( tearful) Course - Vital Signs Last Recorded V/S: Last Vital Signs Temp 36.3 C 05/09/18 22:29 Pulse 119 H 05/09/18 22:29 Resp 18 05/09/18 22:29 BP 122/86 05/09/18 22:29 Pulse Ox 97 05/09/18 22:29 - Orders/Labs/Meds Labs: Laboratory Tests 05/09/18 05/09/18 05/09/18 Range/Units 22:30 22:30 22:45 WBC 9.0 (4.5-11.0) K/uL RBC 4.56 (4.30-5.90) M/uL Hgb 13.3 (12.0-15.0) g/dL Hct 39.5 L (40.0-54.0) % MCV 87 (80-98) fL MCH 29 (27-31) pg MCHC 34 (32-36) % Plt Count 318 (150-400) K/uL Neut % (Auto) 52 (36-66) % Lymph % (Auto) 35 (24-44) % [place] % (Auto) 11 H (2-6) % Eos % (Auto) 1 L (2-4) % Baso % (Auto) 1 (0-1) % Sodium 136 L (140-148) mmol/L Potassium 4.0 (3.6-5.2) mmol/L Chloride 99 L (100-108) mmol/L Carbon Dioxide 30 (21-32) mmol/L Anion Gap 11.0 (5.0-14.0) mmol/L BUN 23 H (7-18) mg/dL Creatinine 1.2 (0.8-1.3) mg/dL Est Cr Clr Drug Dosing 95.00 mL/min Estimated GFR (MDRD) > 60 (>60) Glucose 108 H (74-106) mg/dL Calcium 9.3 (8.5-10.1) mg/dL Total Bilirubin 0.4 (0.2-1.0) mg/dL AST 31 (15-37) U/L ALT 32 (12-78) U/L Alkaline Phosphatase 120 H (46-116) U/L Total Protein 7.9 (6.4-8.2) g/dL Albumin 4.0 (3.4-5.0) g/dL Globulin 3.9 H (2.3-3.5) g/dL Albumin/Globulin Ratio 1.0 L (1.2-2.2) Urine Color Brown Urine Appearance Cloudy Urine pH 6.0 (4.5-8.0) Ur Specific [place] 1.025 (1.008-1.030) Urine Protein 30 H (NEGATIVE) mg/dL Urine Glucose (UA) Normal (NEGATIVE) mg/dL Urine Ketones Negative (NEGATIVE) mg/dL Urine Occult Blood Large (NEGATIVE) Urine Nitrite Negative (NEGAITVE) Urine Bilirubin Small (NEGATIVE) Urine Urobilinogen 4 (NORMAL) mg/dL Ur Leukocyte Esterase Large (NEGATIVE) Urine RBC 75-100 H (0-5) Urine WBC 75-100 H (0-5) Ur Epithelial Cells Rare Amorphous Sediment Urine Bacteria Moderate Urine Mucus Not seen Meds: Medications Discontinued Medications Generic Name Dose Route Start Last Admin Trade Name Freq PRN Reason Stop Dose Admin Hydromorphone HCl 0.5 mg 05/09/18 22:22 05/09/18 22:35 Dilaudid IVPUSH 05/09/18 22:23 0.5 mg ONETIME ONE Administration Sodium Chloride 1,000 mls @ 999 mls/hr 05/09/18 22:30 05/09/18 22:34 Normal Saline IV 999 mls/hr ASDIRECTED SIDDHARTH Administration Levofloxacin/Dextrose 500 mg/ 100 mls @ 100 mls/hr 05/09/18 23:35 05/09/18 23 :49 Premix IV 05/10/18 00:34 100 mls/hr ONETIME ONE Administration Sodium Chloride 1,000 mls @ 999 mls/hr 05/10/18 00:15 05/10/18 00:34 Normal Saline IV 999 mls/hr ASDIRECTED SIDDHARTH Administration Ketorolac Tromethamine 30 mg 05/09/18 23:36 05/09/18 23:52 Toradol IVPUSH 05/09/18 23:37 30 mg ONETIME ONE Administration Lorazepam 1 mg 05/10/18 00:20 05/10/18 00:30 Ativan PO 05/10/18 00:21 1 mg ONETIME ONE Administration Magnesium Citrate 296 ml 05/10/18 00:01 05/10/18 00:09 Citrate Of Magnesia PO 05/10/18 00:02 296 ml ONETIME ONE Administration Phenazopyridine HCl 190 mg 05/09/18 23:36 05/09/18 23:58 Urinary Pain Relief PO 05/09/18 23:37 190 mg ONETIME ONE Administration Phenazopyridine HCl Confirm 05/09/18 23:57 05/10/18 00:00 Urinary Pain Relief Administered 05/09/18 23:58 Not Given Dose 95 mg .ROUTE .[facility] ONE - Re-Assessments/Exams Free Text/Narrative Re-Assessment/Exam: 05/10/18 00:08 cat scan did not show a stone. The bladder wall is thickened from infection. He was given mag citrate 1 bottle to drink. He was given dilaudid .5 mg iv, pyridium 200mg , torodol 30mg iv. He was also given levoquin 500mg iv. Departure - Departure Time of Disposition: 22:30 Disposition: Home, Self-Care 01 Condition: Fair Clinical Impression: UTI (urinary tract infection), Constipation, Depression - Discharge Information Instructions: Constipation, Adult, Urinary Tract Infection, Adult Referrals: PCP,None [Primary Care Provider] - Forms: ED Department Discharge Care Plan Goals: push fluids, pyridium 200mg tid as needed for burning, torodol 10mg q6h as needed for pain, levoquin 500mg daily, Once the bowel is cleaned out. start with miralax 3tsp daily to keep stools regular. appt with paty Nolasco at the [facility], ativan 1 mg bid for anxiety.
[2018-05-10] MEDS ORDERED: Sodium Chloride 0.9% 1,000 ML IV SCH (00:15)
[2018-05-10] MEDS ORDERED: LORazepam 1 MG Tab PO ONE (00:20)
== END 2018-05-10 01:05 | disposition home or self-care (01) ==
LOC: JP.ED 22:07
DX: N39.0 Urinary tract infection, site not specified (principal); K59.00 Constipation, unspecified; F32.9 Major depressive disorder, single episode, unspecified; F17.210 Nicotine dependence, cigarettes, uncomplicated; Z88.5 Allergy status to narcotic agent; Z88.8 Allergy status to other drugs, medicaments and biological substances
CPT/HCPCS: 36415; 74176; 80053; 81001; 85025; 87086; 96361; 96365; 96375; 99284; A9270; J1170; J1885; J1956; J7030

== ENCOUNTER 2019-03-24 10:04 | Emergency (ER) | payer MEDICAID ==
[2019-03-24 10:18] VITALS: BP 117/89; PULSE 72
[2019-03-24] MEDS ORDERED: HYDROmorphone 1 MG/ML Syringe IVPUSH ONE (10:18)
--- NOTE | 2019-03-24 10:20 | EDM.PDOC ---
ED HPI GENERAL MEDICAL PROBLEM - General Chief Complaint: Upper Extremity Injury/Pain Stated Complaint: SHOULDER DISLOCATED WITH LAW Time Seen by Provider: 03/24/19 10:19 Source of Information: Reports: Patient History Limitations: Reports: No Limitations - History of Present Illness INITIAL COMMENTS - FREE TEXT/NARRATIVE: pt raised up his arm and felt like the shoulder went out. Onset: Today, Sudden Duration: Hour(s): Location: Reports: Upper Extremity, Left Associated Symptoms: Reports: No Other Symptoms Left Shoulder Pain Score (Numeric/FACES): 0 - Related Data Allergies Allergy/AdvReac Type Severity Reaction Status Date / Time cyclobenzaprine Allergy Seizure Verified 03/24/19 10:11 tramadol Allergy Seizure Verified 03/24/19 10:11 Home Meds: Home Meds NK [No Known Home Meds] 03/24/19 [History] Past Medical History Genitourinary History: Reports: Renal Calculus Musculoskeletal History: Reports: Other (See Below) Other Musculoskeletal History: l shoulder dislocation Neurological History: Reports: Seizure 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 Other Dermatologic History: Patient unable to answer at this time. - Infectious Disease History Infectious Disease History: Reports: Chicken Pox - Past Surgical History Head Surgeries/Procedures: Reports: None Male Surgical History: Reports: None Neurological Surgical History: Reports: None Musculoskeletal Surgical History: Reports: Shoulder Surgery, Other (See Below) Other Musculoskeletal Surgeries/Procedures:: bilateral shoulder surgery Other Oncologic Surgeries/Procedures: Patient unable to answer at this time. Dermatological Surgical History: Reports: None Social & Family History - Family History Family Medical History: Unobtainable - Tobacco Use Smoking Status *Q: Current Every Day Smoker Years of Tobacco use: 7 Packs/Tins Daily: 0.5 Used Tobacco, but Quit: No Second Hand Smoke Exposure: No - Caffeine Use Caffeine Use: Reports: None - Recreational Drug Use Recreational Drug Use: No Review of Systems - Review of Systems Review Of Systems: See Below Constitutional: Reports: No Symptoms Eyes: Reports: No Symptoms Ears: Reports: No Symptoms Nose: Reports: No Symptoms Mouth/Throat: Reports: No Symptoms Respiratory: Reports: No Symptoms Cardiovascular: Reports: No Symptoms GI/Abdominal: Reports: No Symptoms Genitourinary: Reports: No Symptoms Musculoskeletal: Reports: Other ( Shoulder is painful and looks deformed. ) ED EXAM, GENERAL - Physical Exam Exam: See Below Free Text/Narrative:: pt arrived with a ant dislocation on his left shoulder. He is not able to move the arm. He has been using it normal until this am. He had a dislocation about 7 monthes ago. He had surgery on the shoulder about 2 years ago. Exam Limited By: No Limitations General Appearance: Alert, Anxious, Moderate Distress Ears: Normal TMs Nose: Normal Inspection Throat/Mouth: Normal Inspection Head: Atraumatic Neck: Normal Inspection Respiratory/Chest: No Respiratory Distress Cardiovascular: Regular Rate, Rhythm GI/Abdominal: Soft, Non-Tender (Male) Exam: Deferred Rectal (Males) Exam: Deferred Back Exam: Normal Inspection Extremities: Other ( definite deformity of the left shoulder. Xrays reveal a anterior dislocation) Neurological: Alert, Oriented, Normal Cognition Course - Vital Signs Last Recorded V/S: Last Vital Signs Temp 35.9 C 03/24/19 10:17 Pulse 72 03/24/19 10:17 Resp 16 03/24/19 10:17 BP 117/89 03/24/19 10:17 Pulse Ox 100 03/24/19 10:17 - Orders/Labs/Meds Meds: Medications Discontinued Medications Generic Name Dose Route Start Last Admin Trade Name Luisito PRN Reason Stop Dose Admin Hydromorphone HCl 1 mg 03/24/19 10:18 03/24/19 10:37 Dilaudid IVPUSH 03/24/19 10:19 1 mg ONETIME ONE Administration Hydromorphone HCl 0.5 mg 03/24/19 13:18 03/24/19 13:29 Dilaudid IVPUSH 03/24/19 13:19 0.5 mg ONETIME ONE Administration Sodium Chloride 1,000 mls @ 999 mls/hr 03/24/19 10:30 03/24/19 10:37 Normal Saline IV 999 mls/hr ASDIRECTED SIDDHARTH Administration Propofol Confirm 03/24/19 13:12 Diprivan 20 Ml Administered 03/24/19 13:13 Dose 600 mg .ROUTE .[facility] ONE Succinylcholine Chloride Confirm 03/24/19 13:12 Quelicin Administered 03/24/19 13:13 Dose 400 mg .ROUTE .STK-MED ONE - Re-Assessments/Exams Free Text/Narrative Re-Assessment/Exam: 03/24/19 15:53 xray revealed a anterior dislocation of the left shoulder. He was uncomfortable and he was not able to move his arm. He was sedated with propthol and succinycl choline. He was well relaxed and he could not be reduced. Both Dr Officer and myself pulled on the shoulder. Dr Noland was consulted from [place]. As the pt was waking up he did ask about being released from law enforcement. He did not seem as uncomfortable after it was manipulated. He will be sent to [facility] in 03/24/19 15:58 the shoulder could not be reduced. He did not seem as uncomfortable once he woke up and he immediately started asking about being released from law enforcement. Departure - Departure Time of Disposition: 15:43 Disposition: DC/Tfer to Acute Hospital 02 Condition: Fair Clinical Impression: Dislocation of left shoulder joint, Status post surgery for recurrent dislocation of shoulder - Discharge Information Referrals: PCP,None [Primary Care Provider] - Forms: ED Department Discharge Care Plan Goals: To ER in [facility] per [facility].
[2019-03-24] MEDS ORDERED: Sodium Chloride 0.9% 1,000 ML IV SCH (10:30)
--- NOTE | 2019-03-24 11:03 | CRLCR ---
INDICATION: Left shoulder dislocation TECHNIQUE: Two views left shoulder COMPARISON: None FINDINGS: No fracture is identified on the two views provided. On the transscapular view alignment of the humeral head is overlying the glenoid. Mild anterior subluxation may be present. No dislocation is evident. An axillary view would be helpful for further assessment. If the patient is unable to position for an axillary view a [place] view could be obtained. IMPRESSION: 1. No fracture. 2. Apparent anterior subluxation of the left shoulder without dislocation. A 3rd view of the shoulder would be helpful as discussed above. Dictated by Jose L Daigle MD @ Mar 24 2019 10:58AM Signed by Dr. Jose L Daigle @ Mar 24 2019 11:02AM
[2019-03-24] MEDS ORDERED: Propofol 200 MG/20 ML SDV ONE (13:12)
[2019-03-24] MEDS ORDERED: Succinylcholine 200 MG/10 ML MDV ONE (13:12)
[2019-03-24] MEDS ORDERED: HYDROmorphone 0.5 MG/0.5 ML Syringe IVPUSH ONE (13:18)
--- NOTE | 2019-03-24 13:19 | CRLCR ---
Axillary view. Comparison shoulder x-rays 03/24/2019. Findings: Anterior shoulder dislocation with anterior dislocation of the humerus in relationship to the glenoid. There is a large contour defect along the posterior lateral humerus reflecting a Hill-Sachs lesion. There is also irregularity of the anterior glenoid suggesting a bony [place]. Dictated by Radha Rubio MD @ Mar 24 2019 1:14PM Signed by Dr. Radha Rubio @ Mar 24 2019 1:18PM
--- NOTE | 2019-03-24 14:09 | ANES ---
DATE OF SERVICE: 03/24/2019 INDICATION: A 28-year-old gentleman in the emergency room with a dislocated left shoulder. He is accompanied by the [facility] as he has been incarcerated. He says this went out this morning when he was reaching for a glass of water. He has had multiple left shoulder dislocations. He had it operated on 2 years ago. The most recent dislocation, he says, was about 7 weeks ago. He did not say where he got relocated at. He was hooked up to the monitors. The procedure was explained to him in detail, all questions were answered, and consent was signed. We are planning on Diprivan sedation and closed reduction. DESCRIPTION OF PROCEDURE: After the monitors were applied, he was also given oxygen at 6 L/minute through nasal cannula. He was then given 80 mg of Diprivan which had very little effect on him he was given another 60 and reached a level of sedation where a closed reduction was attempted by Dr. Nguyễn. This was unable to be done. He was given another 40 of Diprivan to increase the depth. Dr. Fitzgerald came in the room, and he also tried, was unable to reduce the shoulder. I was then asked to sedate him and give him succinylcholine. He has been n.p.o. I have no problem doing that in the emergency room. New drugs were obtained. He was given 160 mg of Diprivan, 10 mg of succinylcholine intravenously to him followed by another [address] Fitzgerald and Dr. Nguyễn again both tried to relocate the shoulder and were unable. He was then woke up, breathing adequately on O2, conversing correctly. They contacted the orthopedic surgeon, who suggested another maneuver. More drugs were obtained. Again, he was given 160 mg of Diprivan, total of 120 mg of succinylcholine, and the new technique where was able to move the shoulder head which appears to be anterior, still was not successful in reducing it to an anatomic state. He was given another 40 mg of Diprivan before the procedure was terminated. He will be transferred for definitive orthopedic care elsewhere. He tolerated the procedure well. His respirations were normal. Vital signs stayed in the 120/60s, oxygen was always 100%, tolerated the procedure well. Galo Washington CRNA /[id number]
--- NOTE | 2019-03-24 14:46 | CRLCT ---
HISTORY: Left shoulder dislocation. TECHNIQUE: Noncontrast CT left shoulder. COMPARISON: Radiographs 03/24/2019. FINDINGS: The humeral head is anteriorly dislocated with respect to the glenoid. There is a sizable Hill-Sachs lesion involving the humeral head which measures on the order of 3 x 2.5 cm. The Hill-Sachs lesion appears deep measuring on the order of 16 mm in depth on axial image #38 of series #4. The patient has previously undergone an anterior to anterior inferior labral repair with multiple anchors present. There is bony deformity of the anterior scapula present in the region of the neck-body junction where there is a chronic bony protuberance as seen on axial image #44 of series #4. There are a few small chronic-appearing ossicles along the anterior margin of that bony protuberance. 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 There is no atrophy of the rotator cuff musculature. The AC joint is maintained. IMPRESSION: 1. Anterior dislocation of the left humeral head with respect to the glenoid. 2. Sizable Hill-Sachs lesion involving the humeral head. 3. Chronic bony deformity of the anterior aspect of the scapular neck-body junction with a chronic bony protuberance. There are a few small ossicles along the anterior aspect of the bony protuberance which appear more chronic. 4. Postsurgical changes of prior labral repair. 5. Secondary glenohumeral joint degenerative arthrosis changes. Please note that all CT scans at this facility use dose modulation, iterative reconstruction, and/or weight-based dosing when appropriate to reduce radiation dose to as low as reasonably achievable. Dictated by Jerome Franklin MD @ Mar 25 2019 7:30AM (Electronically Signed)
== END 2019-03-24 15:55 ==
LOC: JP.ED 10:04
DX: S43.015A Anterior dislocation of left humerus, initial encounter (principal); F17.210 Nicotine dependence, cigarettes, uncomplicated; Z88.5 Allergy status to narcotic agent; Z88.8 Allergy status to other drugs, medicaments and biological substances; X58.XXXA Exposure to other specified factors, initial encounter
CPT/HCPCS: 23650; 73020; 73030; 73200; 99152; 99284; J0330; J1170; J2704; J7030

== ENCOUNTER 2020-08-26 12:55 | Emergency (ER) | payer OTHER, MEDICAID ==
[2020-08-26 13:51] VITALS: PULSE 109
[2020-08-26] MEDS ORDERED: Sodium Chloride 0.9% 10 ML Syringe FLUSH PRN (14:27)
[2020-08-26] MEDS ORDERED: Midazolam 1 MG/ML 5 ML SDV IVPUSH ONE ×2 (14:27→14:59)
--- NOTE | 2020-08-26 14:31 | EDM.PDOC ---
ED HPI GENERAL MEDICAL PROBLEM - General Chief Complaint: Upper Extremity Injury/Pain Stated Complaint: L DISLOCATED SHOULDER Time Seen by Provider: 08/26/20 14:20 Source of Information: Reports: Patient, Old Records History Limitations: Reports: No Limitations - History of Present Illness INITIAL COMMENTS - FREE TEXT/NARRATIVE: 29 yo male with a pHx of recurrent shoulder dislocations is currently in alf. 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 Unable to move it since. The officer who brought him in can not say that he has seen Antoni use that L arm. 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 (see below) (none) Left Shoulder Pain Score (Numeric/FACES): 9 - Related Data Allergies Allergy/AdvReac Type Severity Reaction Status Date / Time cyclobenzaprine Allergy Seizure Verified 08/26/20 13:46 tramadol Allergy Seizure Verified 08/26/20 13:46 Home Meds: Home Meds NK [No Known Home Meds] 03/24/19 [History] Past Medical History Genitourinary History: Reports: Renal Calculus Musculoskeletal History: Reports: Other (See Below) Other Musculoskeletal History: l shoulder dislocation Neurological History: Reports: Seizure 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 Other Dermatologic History: Patient unable to answer at this time. - Infectious Disease History Infectious Disease History: Reports: Chicken Pox - Past Surgical History Head Surgeries/Procedures: Reports: None Neurological Surgical History: Reports: None Musculoskeletal Surgical History: Reports: Shoulder Surgery, Other (See Below) Other Musculoskeletal Surgeries/Procedures:: bilateral shoulder surgery Social & Family History - Family History Family Medical History: Unobtainable - Tobacco Use Tobacco Use Status *Q: Never Tobacco User - Caffeine Use Caffeine Use: Reports: None - Recreational Drug Use Recreational Drug Use: No Review of Systems - Review of Systems Review Of Systems: See Below Constitutional: Reports: No Symptoms Musculoskeletal: Reports: Shoulder Pain (left) Skin: Reports: No Symptoms Neurological: Reports: Other (L hand is numb since the injury.) ED EXAM, GENERAL - Physical Exam Exam: See Below Exam Limited By: No Limitations General Appearance: Alert, WD/WN, No Apparent Distress Extremities: Limited Range of Motion (L shoulder), Other (humeral head is clinically sitting dislocated in an anteriorly dislocated position. ). No: Non- Tender, No Pedal Edema, Increased Warmth Neurological: Alert, Oriented, CN II-XII Intact, Normal Cognition Psychiatric: Normal Affect, Normal Mood Skin Exam: Warm, Dry, Intact, Normal Color, No Rash Course - Vital Signs Last Recorded V/S: Last Vital Signs Temp 37 C 08/26/20 13:50 Pulse 109 H 08/26/20 13:50 Resp 20 08/26/20 14:58 BP 124/68 08/26/20 14:58 Pulse Ox 99 08/26/20 14:58 - Orders/Labs/Meds Orders: Active Orders 24 hr Category Date Time Status Shoulder Comp Lt [CR] Stat Exams 08/26/20 13:52 Taken Sodium Chloride 0.9% [Saline Flush] Med 08/26/20 14:27 Active 10 ml FLUSH ASDIRECTED PRN Saline Lock Insert [OM.PC] Routine Oth 08/26/20 14:27 Ordered Medication Orders Sodium Chloride (Saline Flush) 10 ml FLUSH ASDIRECTED PRN PRN Reason: Keep Vein Open Last Admin: 08/26/20 14:59 Dose: 10 ml Documented by: QUYNH Meds: Medications Generic Name Dose Route Start Last Admin Trade Name Freq PRN Reason Stop Dose Admin Sodium Chloride 10 ml 08/26/20 14:27 08/26/20 14:59 Saline Flush FLUSH 10 ml ASDIRECTED PRN Administration Keep Vein Open Discontinued Medications Generic Name Dose Route Start Last Admin Trade Name Freq PRN Reason Stop Dose Admin Midazolam HCl 5 mg 08/26/20 14:27 08/26/20 14:58 Versed 1 Mg/Ml IVPUSH 08/26/20 14:28 5 mg ONETIME ONE Administration Midazolam HCl 5 mg 08/26/20 14:59 08/26/20 15:02 Versed 1 Mg/Ml IVPUSH 08/26/20 15:00 5 mg ONETIME ONE Administration - Re-Assessments/Exams Free Text/Narrative Re-Assessment/Exam: 08/26/20 15:04 After Versed 10 mg IV he was almost completely unfazed. Will have to call anesthesia for Propofol. Free Text/Narrative Re-Assessment/Exam: 08/26/20 16:09 With Propofol we were able to reduce the L shoulder anterior dislocation, but as soon as we let go of his arm it immediately dislocated again. I suspect this is a chronic dislocation. 08/26/20 16:09 Departure - Departure Time of Disposition: 16:30 Disposition: Home, Self-Care 01 Condition: Fair Clinical Impression: Chronic dislocation of left shoulder - Discharge Information *PRESCRIPTION DRUG MONITORING PROGRAM REVIEWED*: No *COPY OF PRESCRIPTION DRUG MONITORING REPORT IN PATIENT SOPHIA: No Referrals: PCP,None [Primary Care Provider] - Forms: ED Department Discharge Additional Instructions: Someone should call tomorrow regarding an orthopedic consultation. Wear the immobilizer for comfort. Ibuprofen and/or acetaminophen may be given for pain relief. Sepsis Event Note (ED) - Evaluation Sepsis Screening Result: No Definite Risk - Focused Exam Vital Signs: Vital Signs Temp Pulse Resp BP Pulse Ox 08/26/20 14:58 20 124/68 99 08/26/20 13:50 37 C 109 H 14 124/62 100 - My Orders Last 24 Hours: My Active Orders 08/26/20 13:52 Shoulder Comp Lt [CR] Stat 08/26/20 14:27 Sodium Chloride 0.9% [Saline Flush] 10 ml FLUSH ASDIRECTED PRN Saline Lock Insert [OM.PC] Routine - Assessment/Plan Last 24 Hours: My Active Orders 08/26/20 13:52 Shoulder Comp Lt [CR] Stat 08/26/20 14:27 Sodium Chloride 0.9% [Saline Flush] 10 ml FLUSH ASDIRECTED PRN Saline Lock Insert [OM.PC] Routine
[2020-08-26 15:05] VITALS: BP 124/68
[2020-08-26] MEDS ORDERED: Propofol 200 MG/20 ML SDV ONE (16:08)
--- NOTE | 2020-08-27 10:03 | CR ---
Shoulder Comp Lt CLINICAL HISTORY: Pain FINDINGS: There is a dislocation of the right glenohumeral joint. This is also seen on a prior CT from 2019. There is some deformity of the humeral head and inferior glenoid. IMPRESSION: Left shoulder dislocation. This may be repetitive or chronic in the dislocation was seen on a prior study of 2019. There are both Hill-Sachs and Bankart deformities
== END 2020-08-26 16:47 | disposition home or self-care (01) ==
LOC: JP.ED 12:55
DX: M24.412 Recurrent dislocation, left shoulder (principal); Z88.5 Allergy status to narcotic agent; Z88.8 Allergy status to other drugs, medicaments and biological substances
CPT/HCPCS: 23650; 73030-26-LT; 73030-LT; 99152; 99283; 99283-25; J2250; J2704

== ENCOUNTER 2023-12-31 06:15 | Emergency (ER) | payer MEDICAID ==
[2023-12-31 06:40] VITALS: BP 130/83; PULSE 129
== END 2023-12-31 07:05 | disposition home or self-care (01) ==
LOC: JP.ED 06:15
DX: S90.111A Contusion of right great toe without damage to nail, initial encounter (principal); F17.210 Nicotine dependence, cigarettes, uncomplicated; Z88.8 Allergy status to other drugs, medicaments and biological substances; Z88.6 Allergy status to analgesic agent; Z86.19 Personal history of other infectious and parasitic diseases; W22.8XXA Striking against or struck by other objects, initial encounter
CPT/HCPCS: 73630-26-RT; 73630-RT; 99283